=== PATIENT | male | born 1975 | race Two or more races ===

== ENCOUNTER 2017-09-20 03:52 | Emergency (ER) | payer SELFPAY ==
[2017-09-20] MEDS ORDERED: CIPROFLOXACIN HCL/DEXAMETH OTIC DROP 7.5 ML AD ONE (05:05)
[2017-09-20] MEDS ORDERED: IBUPROFEN 800 MG TABLET PO ONE (05:06)
--- NOTE | 2017-09-20 05:12 | ER Document Report ---
HPI - HPI Patient complains to provider of: right ear pain Pain Level: 4 Context: Patient is a 42-year-old male that comes emergency department for chief complaint of right ear pain. He states that a few days ago he thinks a bug crawl into his ear, he has poured peroxide into it, he states he did this after the ear started becoming swollen feeling and painful feeling. He denies drainage, he denies dizziness or vomiting, he denies fever. He denies any other symptoms. He denies any daily medications or known past medical history. - DERM Skin Color: Normal, [place], Dusky Past Medical History - General Information source: Patient - Social History Smoking Status: Never Smoker Frequency of alcohol use: None Drug Abuse: None Lives with: Family Family History: Reviewed & Not Pertinent Patient has suicidal ideation: No Patient has homicidal ideation: No - Medical History Medical History: Negative Renal/ Medical History: Denies: Hx Peritoneal Dialysis Surgical Hx: Negative - Immunizations Immunizations up to date: Yes Hx Diphtheria, Pertussis, Tetanus Vaccination: Yes Vertical Provider Document - CONSTITUTIONAL General Appearance: WD/WN, No Apparent Distress - INFECTION CONTROL TRAVEL OUTSIDE OF THE [place] IN LAST 30 DAYS: No - HEENT HEENT: Atraumatic, Normocephalic. negative: Normal ENT Exam - Right ear with tragus tenderness, swollen ear canal, in the middle of the ear canal there appears to be parts of an insect, appears to be leg and side of a cockroach. No bleeding, purulent drainage, induration, fluctuance, or other abnormality noted - NECK Neck: Normal Inspection - RESPIRATORY Respiratory: Breath Sounds Normal, No Respiratory Distress O2 Sat by Pulse Oximetry: 97 - CARDIOVASCULAR Cardiovascular: Regular Rate, Regular Rhythm - GI/ABDOMEN Gastrointestinal: Abdomen Soft, Abdomen Non-Tender Course - Re-evaluation Re-evalutation: Able to pluck a piece of cockroach out of patients ear on his request, patient with obvious otitis externa, no purulent drainage, denies hearing loss, no dizziness or vomiting, no lymphadenopathy, no swelling of the external ear. Discussed with Dr. Gould. Placed on Ciprodex drops, ENT referral number given, patient states he will use the drops until swelling is gone and then informed him that most likely the rest of the bug will come out in the bath. Discussed return precautions in detail, patient states satisfaction and agreement. - Vital Signs Vital signs: Temp Pulse Resp BP Pulse Ox 99.3 F 81 16 131/78 H 97 09/20/17 04:02 09/20/17 04:02 09/20/17 04:02 09/20/17 04:02 09/20/17 04:02 Discharge - Discharge Clinical Impression: Ear foreign body Qualifiers: Encounter type: initial encounter Laterality: right Qualified Code(s): T16.1XXA - Foreign body in right ear, initial encounter Otitis externa Qualifiers: Otitis externa type: unspecified type Chronicity: acute Laterality: right Qualified Code(s): H60.501 - Unspecified acute noninfective otitis externa, right ear Condition: Stable Disposition: HOME, SELF-CARE Additional Instructions: Use las gotas para los odos (4 gotas dos veces al da andrea 7 panchal). Jessie vez que la infeccin desaparece, la hinchazn debe disminuir y el error debera aparecer andrea el patrick. Regrese a la angelique de urgencias si tiene fiebre, v mitos, mareos, hinchazn de la oreja o si algo no est alexandr. [facility] Address: [address] [place] [address] , [place] [address]
[2017-09-20 05:35] VITALS: BP 114/64
== END 2017-09-20 05:33 | disposition home or self-care (01) ==
LOC: ER 03:52
DX: T16.1XXA Foreign body in right ear, initial encounter (principal); H60.501 Unspecified acute noninfective otitis externa, right ear; X58.XXXA Exposure to other specified factors, initial encounter
CPT/HCPCS: 99282; J3490